=== PATIENT | female | born 1985 | race Caucasian/White ===

== ENCOUNTER 2020-02-04 08:03 | Emergency (ER) | payer OTHER, SELFPAY ==
[2020-02-04 08:08] VITALS: BP 117/84; PULSE 89; RESP 16; TEMP 37; O2SAT 100
--- NOTE | 2020-02-04 08:40 | ED.URI ---
HPI - URI/Sore Throat General Chief Complaint: Upper Respiratory Infection Stated Complaint: vomitting/headache/sinus pressure Time Seen by Provider: 02/04/20 08:20 Source: patient and RN notes reviewed Mode of arrival: ambulatory Limitations: no limitations History of Present Illness HPI Narrative: Patient presents today complaining of frontal headache, nonproductive cough, nasal congestion, chills, subjective fever that has resolved prior to arrival. Denies shortness of breath, rhinorrhea, sore throat. She currently rates her pain 7/10 and has been using a nasal spray and ibuprofen as well as some cough medicine without much relief. Denies history of asthma or COPD. No known COVID-19 exposure. Patient works at [employer]. MD elicited complaint: cough and nasal congestion Related Data Home Medications Medication Instructions Recorded Confirmed No Home Medications 02/04/20 02/04/20 Allergies Allergy/AdvReac Type Severity Reaction Status Date / Time No Known Allergies Allergy Verified 02/04/20 08:35 Review of Systems Review of Systems: Narrative: CONSTITUTIONAL: Denies body aches, sweats. + Fever, chills EYES: Denies visual changes, redness, or discharge. ENT: Denies rhinorrhea, sore throat, or otalgia.+ Congestion CARDIOVASCULAR: Denies chest pain, palpitations, or edema. RESPIRATORY: Denies dyspnea. + Nonproductive cough GASTROINTESTINAL: Denies abdominal pain, nausea, vomiting, or diarrhea. GENITOURINARY: Denies dysuria or hematuria. SKIN: Denies rash, itching, or wounds. MUSCULOSKELETAL: Denies back pain, joint pain, or myalgia. NEUROLOGIC: Denies numbness, tingling, or weakness. + Headache PSYCH: Denies depression or anxiety. PMFSH Comments At time of signature, I have reviewed and agree with nursing past medical, surgical, social and family history unless otherwise noted. Please see nursing chart for further information. There is no relevant family history pertinent to the presenting complaint Exam Narrative: Exam Narrative: GENERAL: Well-appearing, well-nourished, and in no acute distress. HEAD: Normocephalic, atraumatic. EYES: EOMI. No redness or drainage. Conjunctivae normal. ENT: Mucous membranes pink and moist. Nares clear. No rhinorrhea. TMs normal bilaterally. Visualized portion of the throat without edema or erythema. Patient would not tolerate a tongue blade on the tongue. She kept pushing the tongue blade away and pushing my hand away. She would not stick her tongue out all the way. She would not open up fully to fully evaluate her throat. Uvula midline. NECK: Normal AROM. Supple. No lymphadenopathy. CHEST: No respiratory distress. Clear to auscultation. HEART: Regular rate and rhythm. No murmur appreciated. Normal peripheral pulses. EXTREMITIES: Normal range of motion. No edema. SKIN: Warm, dry, no rash. Capillary refill normal. Normal skin turgor. NEURO: No focal deficits. Alert and oriented x3. Gait steady. PSYCH: Normal affect. No signs of depression or anxiety. Course Course Emergency Course: As patient would not cooperate for full throat evaluation, or even putting a tongue blade in her mouth, she would not tolerate a strep swab. We attempted also to obtain a flu swab, but patient kept turning her head away and pushing my hand away as I attempted to even get close to her nose with the swab. I do think that she needs COVID-19 testing, however, I am not sure that she will tolerate it. I will order a test, and she has agreed to this. I explained the test in detail and how the swab was obtained. Vital Signs Vital signs: Vital Signs Temperature 98.6 F 02/04/20 08:08 Pulse Rate 89 02/04/20 08:08 Respiratory Rate 16 02/04/20 08:08 Blood Pressure 117/84 02/04/20 08:08 Pulse Oximetry 100 02/04/20 08:08 Temperature 98.6 F 02/04/20 08:08 Pulse Rate 89 02/04/20 08:08 Respiratory Rate 16 02/04/20 08:08 Blood Pressure 117/84 02/04/20 08:08 Pulse Ox
== END 2020-02-04 08:45 | disposition home or self-care (01) ==
PROVIDERS: Emergency Provider Nurse Practitioner; PCP Nurse Practitioner Family
DX: J06.9 Acute upper respiratory infection, unspecified (principal); Z20.828 Contact with and (suspected) exposure to other viral communicable diseases
CPT/HCPCS: 87635; 99211; C9803; G0463; U0003

== ENCOUNTER 2020-02-04 09:28 | Outpatient (NON) | payer OTHER, SELFPAY ==
[2020-02-04 20:51] LABS: SARS-CoV-2 RNA PCR Negative
== END 2020-02-04 09:29 ==
LOC: ANHCOVIDDT 09:29
PROVIDERS: PCP Nurse Practitioner Family; Visit Provider Nurse Practitioner
DX: J06.9 Acute upper respiratory infection, unspecified (principal); Z20.828 Contact with and (suspected) exposure to other viral communicable diseases
CPT/HCPCS: 87635; C9803; U0003

== ENCOUNTER 2024-05-22 14:53 | Emergency (ER) | payer OTHER, SELFPAY ==
[2024-05-22 15:00] VITALS: BP 110/75; PULSE 85; RESP 22; TEMP 36.9; O2SAT 98
--- NOTE | 2024-05-22 15:09 | ED.GENADULT ---
HPI - General Adult General Chief complaint: Dizziness Stated complaint: Dizziness/Nausea Time Seen by Provider: 05/22/24 15:35 Mode of arrival: ambulatory Limitations: no limitations History of Present Illness HPI narrative: 39-year-old female presents with concern for 3 day history of cough, nausea, dizziness, headache. She also reports body aches. She has not taken any medication for her symptoms. MD complaint: Cough Related Data Allergies Allergy/AdvReac Type Severity Reaction Status Date / Time No Known Allergies Allergy Verified 02/04/20 08:35 Review of Systems Review of Systems: CONSTITUTIONAL: Reports malaise. Denies chills, sweats, or fever. EYES: Denies visual changes, redness, or discharge. ENT: Denies rhinorrhea, congestion. Denies sinus pain, otalgia or sore throat. CARDIOVASCULAR: Denies chest pain, palpitations, or edema. RESPIRATORY: Denies cough or dyspnea. GASTROINTESTINAL: Denies abdominal pain, vomiting, diarrhea, bloody, or mucous stools. Reports nausea GENITOURINARY: Denies dysuria or hematuria. SKIN: Denies rash or itching. MUSCULOSKELETAL: Denies back pain, joint pain, or myalgia. NEUROLOGIC: Reports headache and body aches PSYCHIATRIC: Denies anxiety or depression. All systems reviewed & are unremarkable except as noted in HPI and below PMFSH Comments At time of signature, agree with nursing past medical, surgical, social and family history. There is no relevant family history pertinent to the presenting complaint Exam Narrative: GENERAL: Well-appearing, well-nourished, and in no acute distress. HEAD: Normocephalic EYES: PERRLA, conjunctivae clear ENT: Nares clear, turbinates edematous and erythematous, clear discharge. Mucous membranes moist. TM pearly hartman with dull light reflex bilaterally; no tragal tenderness. Oropharynx erythematous without lesions. Tonsils enlarged and without exudate, no drooling, no hoarseness, no trismus, uvula midline. NECK: Supple. No lymphadenopathy CHEST: Clear to auscultation, breath sounds equal. No wheezing, rhonchi, rales, or stridor. No respiratory distress, speaks in full sentences. HEART: Regular rate and rhythm. No murmur heard. SKIN: Warm, dry, no rash. NEURO: Alert and oriented x3. No focal deficits PSYCH: Normal mood and affect Course Course Emergency Course: Patient is aware of diagnosis, understands and agrees to treatment plan. Anticipatory guidance given. Patient agrees to follow-up as directed and is aware of reasons to seek care at the emergency department. Portions of this record may have been created with voice recognition software Level of Care: Express Care Visit Vital Signs Vital signs: Vital Signs Temperature 98.5 F 05/22/24 15:00 Pulse Rate 85 05/22/24 15:00 Respiratory Rate 22 H 05/22/24 15:00 Blood Pressure 110/75 05/22/24 15:00 Pulse Oximetry 98 05/22/24 15:00 Oxygen Delivery Room Air 05/22/24 15:00 Temperature 98.5 F 05/22/24 15:00 Pulse Rate 85 05/22/24 15:00 Respiratory Rate 22 H 05/22/24 15:00 Blood Pressure 110/75 05/22/24 15:00 Pulse Oximetry 98 05/22/24 15:00 Oxygen Delivery Room Air 05/22/24 15:00 Reviewed. Medical Decision Making MDM Narrative Medical decision making narrative: The patient was evaluated by myself in the emergency department. History is obtained from patient who is an independent historian and physical exam was performed.? Available medical records were reviewed at this time. ? Exam findings and imaging show no acute concerns or changes; patient is non-toxic appearing and is in no distress. Patient is appropriate for outpatient treatment and follow-up. ? I have evaluated and discussed social determinants of health with the patient that could potentially impact subsequent diagnosis and treatment plans. ? Differential diagnosis and treatment plan were discussed with the patient. Patient agrees with discussion and after shared medical decision making agrees with plan of care. All questions were answered to the patient's satisfaction. Vital Signs Vital Signs: Vital Signs Temperature 98.5 F 05/22/24 15:00 Pulse Rate 85 05/22/24 15:00 Respiratory Rate 22 H 05/22/24 15:00 Blood Pressure 110/75 05/22/24 15:00 Pulse Oximetry 98 05/22/24 15:00 Oxygen Delivery Room Air 05/22/24 15:00 Temperature 98.5 F 05/22/24 15:00 Pulse Rate 85 05/22/24 15:00 Respiratory Rate 22 H 05/22/24 15:00 Blood Pressure 110/75 05/22/24 15:00 Pulse Oximetry 98 05/22/24 15:00 Oxygen Delivery Room Air 05/22/24 15:00 Critical Care Time Critical Care Time Critical Care Time: No Discharge Plan Discharge Clinical Impression: Influenza-like illness Patient Disposition: Home, Self-Care Condition: Stable Instructions: Viral Syndrome (ED) Additional Instructions: -Take strict precautions to prevent the spread of your virus. Be diligent about covering your cough (even when you are alone) and washing your hands frequently. -You may contagious until you have been symptom and/or fever free for 24 hours without fever reducing medicine -Alternate Ibuprofen and Tylenol for pain and fever relief (per package directions) -Drink plenty of fluid - drink fluid with electrolytes such as Gatorade or other oral re-hydration solution. Avoid caffeine, which can make dehydration worse. -Get plenty of rest to help your body heal. -Use a cool mist humidifier for chest and nasal congestion. -Eat RAW honey or use cough drops to ease throat discomfort -Do not smoke or expose children to secondhand smoke -Wash your hands frequently. -Please follow-up with your primary care doctor in the next 1-2 days if your symptoms do not improve. -If you have any worsening of symptoms or any other concerns please go to the ED immediately. -Please take medications as prescribed and continue taking your home medications as usual. Patient Language: Bhutanese Prescriptions: New pseudoephedrine HCl [12 Hour Decongestant] 120 mg tablet extended release 120 mg PO Q12H PRN (Reason: nasal congestion) Qty: 20 0RF dextromethorphan-guaifenesin [Mucinex DM] 60-1,200 mg tablet extended release 12 hr 1 tablet PO Q12H Qty: 12 0RF Follow-up/Referrals: Audra,Rosmery Grey APN [Primary Care Provider] -
[2024-05-22 15:23] LABS: EDCOVIDSCREEN Negative (Negative); EDINFLUASCREEN Negative (Negative); EDINFLUBSCREEN Negative (Negative)
--- OUTSIDE RECORDS SUMMARY | 2024-05-22 15:39 | XMS_ITS | Data Portability ---
[facility] [address] [facility] [place] [address] Care Team Providers Care Secret Service Agent Name Role Phone ROSMERY NAVARRETE Primary Care Provider LATRELL LANDEROS Arboriculture Instructor Unavailable Assessment No assessment recorded. Plan of Treatment Reminders Order Date Submit Date Provider Last Modified By Organization Details Last Modified Time Details Appointments ANY 15 2024 08:00A M Rosmery Navarrete APN, [employer] Not available Not available Not available Lab lipid panel, serum 2023 024 [facility], [address] [facility], [facility], [place], [address], 07/04/2023 20:08:41 CMP, serum or plasma 2023 024 [facility], [address] [facility], [facility], [place], [address], 07/04/2023 20:08:42 cytolog y report, thin prep, smear or scrapin g, cervica l or vaginal 2024 025 [facility], [address] [facility], [facility], [place], [address], 05/18/2024 12:39:49 Referral gastroe nterolo gist referra l 2023 024 damir Choi MD, [address] [place] [address] Dr Davies, [address], [place], [address], 05/14/2024 10:56:59 Procedures None recorde d. Surgeries None recorde d. Imaging None recorde d. Medication Orders norethi ndrone (contra ceptive ) 0.35 mg tablet [id number], [address], [place], [address], 05/13/2023 09:08:32 ondanse sheridan 4 mg disinte grating tablet 2023 [place] [address], [place], [address], 07/04/2023 09:35:39 atorvas tatin 40 mg tablet 2023 [facility], [facility] [address], [place], [address], 07/04/2023 09:35:40 cetiriz ine 10 mg tablet 2023 024 [facility], [facility] [address], [place], [address], 07/04/2023 09:35:41 Vitamin D2 1,250 mcg (50,000 unit) capsule 2023 [place] [address], [place], [address], 07/04/2023 09:35:38 omepraz ole 20 mg capsule ,delaye d release 2023 024 [facility], [facility] [address], [place], [address], 07/04/2023 09:35:40 cetiriz ine 10 mg tablet 2023 024 [facility], [facility] [address], [place], [address], 01/05/2024 09:01:09 atorvas tatin 40 mg tablet [address], [place], [address], 01/05/2024 09:01:09 Vitamin D2 1,250 mcg (50,000 unit) capsule [address], [place], [address], 01/05/2024 09:01:12 omepraz ole 20 mg capsule ,delaye d release [address], [place], [address], 01/05/2024 09:01:12 ondanse sheridan 4 mg disinte grating tablet [address], [place], [address], 01/05/2024 09:01:12 Patient TargetsNo targets recorded. Patient Instructions Encounter Date Encounter Id Patient Instructions Last Modified By Organization Details Last Modified Time 04/14/2023 [id number] A healthy lifest yle: care instructions Not available 04/14/2023 15:06:45 tailbone injury: care instructions Not available 04/14/2023 15:06:45 earwax blockage: care instructions Not available 04/14/2023 15:35:12 Increase intake of fresh fruits, and vegetables. Avoid packaged foods and fast foods. Follow a low salt diet, drink at least 8-10 8oz glasses of water a day, exercise most days of the week. Take all medications as prescribed. Keep appointments with PCP and all specialists. Not available 04/14/2023 15:35:17 keep f/u as planned Not availa ble 04/14/2023 15:35:22 07/04/2023 [id number] nausea and vomit ing: care instructions Not available 07/04/2023 09:35:34 When You Want to Lose Weight: Care Instructions Not available 07/04/2023 09:35:34 A healthy lifest yle: care instructions Not available 07/04/2023 09:38:13 gastroesophageal reflux disease (GERD): care instructions Not available 07/04/2023 09:35:34 Increase intake of fresh fruits, and vegetables. Avoid packaged foods and fast foods. Follow a low salt diet, drink at least 8-10 8oz glasses of water a day, exercise most days of the week. Take all medications as prescribed. Keep appointments with PCP and all specialists. Not available 07/04/2023 09:20:05 f/u 6 months DW P barriers to care: none Not available 07/04/2023 09:36:04 01/05/2024 [id number] When You Want to Lose Weight: Care Instructions Not available 01/05/2024 09:00:57 A healthy lifest yle: care instructions Not available 01/05/2024 09:00:57 gastroesophageal reflux disease (GERD): care instructions Not available 01/05/2024 09:00:57 nausea and vomit ing: care instructions Not available 01/05/2024 09:00:57 Avoid eating lat e at night and foods that are spicy or acidic. Decrease fatty foods and increase fresh fruits and vegetables and daily intake of fiber. Drink at least 8-10 glasses of water per day. Increase activity level and work up to at least 30 minutes of exercise most days of the week. 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 Referral for Gastroesophageal reflux disease without esophagitis Referring Physician: Rosmery Navarrete, Family Medicine, Encounter Date: 01/05/2024 Results Created Date Observation Date Name Description Value Unit Range Abnormal Flag Note LastModifiedBy Organization Detail LastModifiedTime 07/04/19 24 07/04/2023 LIPID PANEL cholesterol, total 171 mg/dL 100-19 9 Not Available [facility] [address] [place], [address], 07/04/2023 20:08:41 07/04/19 24 07/04/2023 LIPID PANEL triglyceride s 187 mg/dL 0-149 above high normal Not Available [facility] [address] [place], [address], 07/04/2023 20:08:41 07/04/19 24 07/04/2023 LIPID PANEL HDL cholesterol 54 mg/dL 40-999 Not Available [facility] Department [address] [place], [address], 07/04/2023 20:08:41 07/04/19 24 07/04/2023 LIPID PANEL VLDL cholesterol ryan 37 mg/dL 5-40 Not Available [facility] Department [address] [place], [address], 07/04/2023 20:08:41 07/04/19 24 07/04/2023 LIPID PANEL LDL chol calc (nih) 108 mg/dL 0-99 above high normal Not Available [facility] [address] [place], [address], 07/04/2023 20:08:41 07/04/19 24 07/04/2023 COMP. METAB OLIC PANEL (14) glucose 102 mg/dL 70-99 above high normal Not Available [facility] [address] [place], [address], 07/04/2023 20:08:42 07/04/19 24 07/04/2023 COMP. METAB OLIC PANEL (14) BUN 13 mg/dL 6-20 Not Available [facility] [address] [place], [address], 07/04/2023 20:08:42 07/04/19 24 07/04/2023 COMP. METAB OLIC PANEL (14) creatinine 0.57 mg/dL 0.76-1 .27 below low normal Not Available [facility] [address] [place], [address], 07/04/2023 20:08:42 07/04/19 24 07/04/2023 COMP. METAB OLIC PANEL (14) eGFR 120 >=60 Units for eGFR value s are mL/mi n/1.7 3 The eGFR Calcu latio n has not been valid ated for patie nts under the age of 18. If test resul ts are displ ayed for a patie nt under the age of 18, disre amira that value . Not Available [facility] [address] [place] [address], [address], 07/04/2023 20:08:42 07/04/19 24 07/04/2023 COMP. METAB OLIC PANEL (14) BUN/creatini ne ratio 24 9-23 above high normal Not Available [facility] [address] [place] [address], [address], 07/04/2023 20:08:42 07/04/19 24 07/04/2023 COMP. METAB OLIC PANEL (14) sodium 141 mmol/ L 134-14 4 Not Available [facility] [address] [place] [address], [address], 07/04/2023 20:08:42 07/04/19 24 07/04/2023 COMP. METAB OLIC PANEL (14) potassium 4.2 mmol/ L 3.5-5. 2 Not Available [facility] [address] [place] [address], [address], 07/04/2023 20:08:42 07/04/19 24 07/04/2023 COMP. METAB OLIC PANEL (14) chloride 102 mmol/ L 96-106 Not Available [facility] [address] [place] [address], [address], 07/04/2023 20:08:42 07/04/19 24 07/04/2023 COMP. METAB OLIC PANEL (14) carbon dioxide, total 27 mmol/ L 20-29 Not Available [facility] [address] [place], [address], 07/04/2023 20:08:42 07/04/19 24 07/04/2023 COMP. METAB OLIC PANEL (14) calcium 9.2 mg/dL 8.7-10 .2 Not Available [facility] [address] [place], [address], 07/04/2023 20:08:42 07/04/19 24 07/04/2023 COMP. METAB OLIC PANEL (14) protein, total 7.5 g/dL 6.0-8. 5 Not Available [facility] [address] [place], [address], 07/04/2023 20:08:42 07/04/19 24 07/04/2023 COMP. METAB OLIC PANEL (14) albumin 4.5 g/dL 3.9-4. 9 Not Available [facility] [address] [place], [address], 07/04/2023 20:08:42 07/04/19 24 07/04/2023 COMP. METAB OLIC PANEL (14) globulin, total 3.0 g/dL 1.5-4. 5 Not Available [facility] [address] [place], [address], 07/04/2023 20:08:42 07/04/19 24 07/04/2023 COMP. METAB OLIC PANEL (14) A/G ratio 1.5 1.2-2. 2 Not Available [facility] [address] [place], [address], 07/04/2023 20:08:42 07/04/19 24 07/04/2023 COMP. METAB OLIC PANEL (14) bilirubin, total 0.5 mg/dL 0.0-1. 2 Not Available [facility] [address] [place], [address], 07/04/2023 20:08:42 07/04/19 24 07/04/2023 COMP. METAB OLIC PANEL (14) alkaline phosphatase 104 IU/L 44-121 Not Available [facility] Department [address] [place], [address], 07/04/2023 20:08:42 07/04/19 24 07/04/2023 COMP. METAB OLIC PANEL (14) AST (SGOT) 10 IU/L 0-40 Not Available [facility] Department [address] [place], [address], 07/04/2023 20:08:42 07/04/19 24 07/04/2023 COMP. METAB OLIC PANEL (14) ALT (SGPT) 12 IU/L 0-32 Not Available [facility] Department [address] [place], [address], 07/04/2023 20:08:42 Result Notes None recorded. Problems Name Problem SNOMED Code Status Onset Date Resolution Date Notes Provider Name and Address Organization Details Recorded Time Abdominal pain 89406821 Active 2018 Rosmery Navarrete APN, FNP-C Attn: Christo reyes,[address] [place], [address], [facility] 9 10:41:41 Prehypert ension 287469086 Active 2018 Rosmery Navarrete APN, FNP-C Attn: Christo reyes,[address] [place], [address], [facility] 9 10:41:42 Obese 640873553 Active 2018 Rosmery Navarrete APN, FNP-C Attn: Christo reyes,[address] [place], [address], [facility] 9 10:59:39 Vitamin D deficienc y 17965671 Active 2018 Rosmery Navarrete APN, FNP-C Attn: Christo reyes,[address], [place], [address], [facility] 9 15:46:50 Mixed hyperlipi demia 942546870 Active 2018 Rosmery Navarrete APN, FNP-C Attn: Tiffanybuster g,[address] [facility], [place], [address], [facility] 9 15:47:33 Gastroeso phageal reflux disease without esophagit is 683928775 Active 2018 Rosmery Navarrete APN, FNP-C Attn: Christo g,[address] [facility], [place], [address], [facility] 9 10:35:43 Mood disorder 45849102 Active 2020 Rosmery Navarrete APN, FNP-C Attn: Christo reyes,[address] [facility], [place], [address], [facility] 1 12:40:04 Ingrowing nail of toe of left foot [id number] 11072 Active 2020 Rosmery Navarrete APN, FNP-C Attn: Christo eric,[address] [facility], [place], [address], [facility] 1 12:43:01 Electroni c cigarette user 158198736 Active 2021 Rosmery Navarrete APN, FNP-C Attn: Christo eric,[address] [facility], [place], [address], [facility] 2 11:32:09 Obesity 147830089 Active 2021 Rosmery Navarrete APN, FNP-C Attn: Christo g,[address] [place], [address], [facility] 2 14:58:17 Family history of colorecta l cancer 709293211068 4 Active 2021 LATRELL LANDEROS MD Attn: Christo reyes,[address] [place], [address], [facility] 2 09:23:06 Eruption [id number] Completed 05/11/2018 Rosmery Navarrete APN, FNP-C Attn: Christo reyes,[address] [facility], [place], [address], [facility] 9 10:29:28 Dysuria 44039598 Completed 05/11/2018 Rosmery Navarrete APN [employer] Attn: Christo reyes,[address] [facility], [place], [address], [facility] 9 10:29:25 Nausea and vomiting 93731630 Completed 05/11/2018 Rosmery Navarrete APN [employer] Attn: Christo reyes,[address] [facility], [place], [address], [facility] 9 10:29:30 Problem Notes None recorded. Procedures Surgical History Date Name Laterality Status Provider Name and Address Organization Details Recorded Time 4 Cerumen Removal completed Rosmery Navarrete APN, FNP-C Attn: Accounting,[address] [facility], [place], [address], [facility] 04/14/2023 15:33:46 0 Date of Last Pap Smear completed Franci Kay [facility] 09/25/2020 10:10:06 9 Other completed Marcia Villatoro [facility] 08/12/2014 09:07:13 incision of ingrown nail completed Rachel Montero MA [facility] 06/13/2019 10:26:19 Imaging Results None recorded. Procedure Notes None recorded. Medical Equipment None Reported. Allergies No known drug allergies Medications Name Sig Start Date Stop Date Status Note LastModified by Organization Details LastModified Time amoxicill in 500 mg capsule 05/11 completed Not Available Not Available Not Available atorvasta tin 40 mg tablet Take 1 tablet every day by oral route, for high choleste rol. active Not Available Not Available No t Available prednison e 10 mg tablet 11/01 completed Not Available Not Available Not Available atorvasta tin 20 mg tablet TAKE ONE (1) TABLET EVERY DAY BY ORAL ROUTE. 12/29 completed Not Available Not Available Not Available clindamyc in HCl 300 mg capsule TAKE 1 CAPSULE BY MOUTH EVERY 8 HOURS FOR 10 DAYS FOR DENTAL INFECTIO N 11/01 completed Not Available Not Available Not Available cetirizin e 10 mg tablet Take 1 tablet every day by oral route as needed, for allergie s. active Not Available Not Available No t Available hydrocodo ne 5 mg-acetam inophen 325 mg tablet TAKE 1 TABLET BY MOUTH EVERY 6 HOURS NEEDED FOR MODERATE TO SEVERE PAIN 05/13 completed Not Available Not Available Not Available phenazopy ridine 200 mg tablet 08/19 completed Not Available Not Available Not Available ondansetr on HCl 4 mg tablet TAKE 2 TABLET(S ) TWICE A DAY BY ORAL ROUTE PRN 05/13 completed Not Available Not Available Not Available Pyridium 100 mg tablet Take 1 tablet 3 times a day by oral route as needed for 2 days. 08/19 completed Not Available Not Available Not Available penicilli n V potassium 500 mg tablet Take 1 tablet every 8 hours by oral route for 10 days. 11/01 completed Not Available Not Available Not Available metronida zole 500 mg tablet Take 1 tablet twice a day by oral route. 10/03 completed Not Available Not Available Not Available ciproflox acin 500 mg tablet Take 1 tablet every 12 hours by oral route for 5 days. 09/21 completed Not Available Not Available Not Available sulfameth oxazole 800 mg-trimet hoprim 160 mg tablet Take 1 tablet every 12 hours by oral route. 04/18 completed Not Available Not Available Not Available tramadol 50 mg tablet TAKE 1 TO 2 TABLETS BY MOUTH EVERY 6 HOURS NEEDED FOR MODERATE TO SEVERE PAIN 07/03 completed Not Available Not Available Not Available triamcino lone acetonide 0.1 % topical cream APPLY a THIN LAYER TO THE AFFECTED AREA(S) BY TOPICAL ROUTE TWO (2) TIMES PER DAY active Not Available Not Available No t Available Microgest in FE 04/30 (28) 1 mg-20 mcg (21)/75 mg (7) tablet Take 1 tablet every day by oral route. 04/25 completed 01/01/20 20-pt isn't sure where her BCP is she has been without it for few months. Informed pt to contact pharmacy or Dr. Garcia ofc to rec'd refills. Informed her she may need apt. Not Available Not Available Not Available famotidin e 20 mg tablet Take 1 tablet twice a day by oral route. 03/25 completed Not Available Not Available Not Available meclizine 25 mg tablet Take 1 tablet 3 times a day by oral route as needed, for vertigo. 2024 active Not Available Not Available Not Avai lable benzonata te 100 mg capsule 10/01 completed Not Available Not Available Not Available cephalexi n 500 mg capsule Take 1 capsule every 12 hours by oral route for 7 days. 11/23 completed Not Available Not Available Not Available naproxen sodium 550 mg tablet 06/16 completed Not Available Not Available Not Available ranitidin e 150 mg tablet Take 1 tablet every day by oral route. 02/01 completed Not Available Not Available Not Available Elle-D 12 Hour 60 mg-120 mg tablet,ex tended release Take 1 tablet twice a day by oral route for 6 days. 04/25 completed Not Available Not Available Not Available promethaz ine 25 mg tablet TAKE 1 TABLET EVERY 4-6 HOURS NEEDED FOR NAUSEA 03/25 completed prn Not Available Not Available Not Available omeprazol e 20 mg capsule,d elayed release Take 1 capsule twice a day by oral route, for acid reflux. active Not Available Not Available No t Available ergocalci ferol (vitamin D2) 1,250 mcg (50,000 unit) capsule Take 1 capsule every week by oral route. active Not Available Not Available No t Available ibuprofen 600 mg tablet TAKE 1 TABLET BY MOUTH EVERY 8 HOURS active Not Available Not Available No t Available polyethyl kary glycol 3350 17 gram/dose oral powder Take 17 g every day by oral route as needed. 03/25 completed Not Available Not Available Not Available methylpre dnisolone 4 mg tablets in a dose pack Take 1 dose pk by oral route. 06/12 completed Not Available Not Available Not Available norethind gordo (contrace ptive) 0.35 mg tablet Take 1 tablet every day by oral route. active Not Available Not Available No t Available ketoconaz ole 2 % topical cream APPLY TO THE AFFECTED AREA(S) BY TOPICAL ROUTE ONCE DAILY UNTIL RASH RESOLVES 05/13 completed Not Available Not Available Not Available ondansetr on 4 mg disintegr ating tablet Take 2 tablets every 12 hours by oral route as needed, for nausea. active Not Available Not Available No t Available fluticaso ne propionat e 50 mcg/actua tion nasal spray,thomas pension USE ONE (1) SPRAY IN EACH NOSTRIL DAILY. 2023 active Not Available Not Available Not Avai lable naproxen 500 mg tablet TAKE 1 TABLET BY MOUTH TWICE DAILY NEEDED FOR PAIN active Not Available Not Available No t Available amoxicill in 875 mg-potass ium clavulana te 125 mg tablet Take 1 tablet every 12 hours by oral route for 10 days. 11/12 completed Not Available Not Available Not Available nitrofura ntoin monohydra te/macroc rystals 100 mg capsule Take 1 capsule every 12 hours by oral route for 5 days. 06/15 completed Not Available Not Available Not Available chlorhexi dine gluconate 0.12 % mouthwash Place 15 mL twice a day by mucous membrane route. active Not Available Not Available No t Available cholecalc iferol (vitamin D3) 1,250 mcg (50,000 unit) capsule Take 1 capsule every week by oral route. 10/03 completed Not Available Not Available Not Available ClearLax 06/21 completed Not Available Not Available Not Available 28 mg iron-800 mcg tablet Take 1 tablet every day by oral route. 08/19 completed Not Available Not Available Not Available Estarylla 0.25 mg-35 mcg tablet TAKE ONE TABLET BY MOUTH EVERY DAY 03/25 completed Not Available Not Available Not Available triamcino lone 0.1 %-niacina mide 4 % topical cream active Not Available Not Available Not Available ID NOW COVID-19 Test Kit TEST DIRECTED TODAY 11/25 completed Not Available Not Available Not Available Vitals Date Recorded Body height Body mass index (BMI) Body weight Oxygen saturation Oxygen saturation in Arterial blood by Pulse oximetry Heart rate Respiratory rate Body temperature Systolic blood pressure Diastolic blood pressure Provider Name and Address Organization Details Last Updated DateTime 4 157.48 cm 33.1 kg/m2 17510.5 8 g 98 % 98 % 90 /min 16 /min 98.3 [degF] 108 mm[Hg] 72 mm[Hg] Marilou Day MA [facility] 4 15:02:51 Date Recorded Body height Body mass index (BMI) Body weight Body temperature Oxygen saturation Oxygen saturation in Arterial blood by Pulse oximetry Heart rate Systolic blood pressure Diastolic blood pressure Provider Name and Address Organization Details Last Updated DateTime 4 157.48 cm 33 kg/m2 74674.7 8 g 97.5 [degF] 99 % 99 % 77 /min 116 mm[Hg] 80 mm[Hg] Rachel Montero MA [facility] 4 08:32:58 Date Recorded Body height Body mass index (BMI) Body weight Oxygen saturation Oxygen saturation in Arterial blood by Pulse oximetry Heart rate Respiratory rate Body temperature Systolic blood pressure Diastolic blood pressure Provider Name and Address Organization Details Last Updated DateTime 4 157.48 cm 34.3 kg/m2 02886.5 7 g 98 % 98 % 99 /min 16 /min 98 [degF] 102 mm[Hg] 70 mm[Hg] Smita Herrera MA [facility] 4 09:18:24 Date Recorded Body height Body mass index (BMI) Body weight Oxygen saturation Oxygen saturation in Arterial blood by Pulse oximetry Heart rate Respiratory rate Body temperature Systolic blood pressure Diastolic blood pressure Provider Name and Address Organization Details Last Updated DateTime 4 157.48 cm 35.6 kg/m2 09057.0 7 g 98 % 98 % 103 /min 16 /min 98.2 [degF] 108 mm[Hg] 70 mm[Hg] Lexus Suggs MA [facility] 4 08:45:45 Date Recorded Body height Body mass index (BMI) Body weight Oxygen saturation Oxygen saturation in Arterial blood by Pulse oximetry Heart rate Body temperature Systolic blood pressure Diastolic blood pressure Provider Name and Address Organization Details Last Updated DateTime 5 157.48 cm 34.6 kg/m2 83272.3 6 g 98 % 98 % 86 /min 98.2 [degF] 102 mm[Hg] 69 mm[Hg] Rachel Montero MA [place] [facility] 5 11:02:54 Social History Question Answer Notes LastModified by Organizat ion Details LastModified Time Tobacco Smoking Status Never Smoker Marcia Leivafortyi [place] - [facility] 08/12/2014 09:07:13 Do You Have An Advance Directive? No Information not available 05/11/2018 What Is Your Level Of Alcohol Consumption? None [email or web address] Information not available 03/25/2022 Are You Blind Or Do You Have Difficulty Seeing? No [email or web address] Information not available 08/19/2020 Is Blood Transfusion Acceptable In An Emergency? Yes Information not available 06/13/2019 What Is Your Level Of Caffeine Consumption? Moderate Tea [email or web address] Information not available 03/25/2022 How Much Tobacco Do You Chew? None Information not available 05/11/2018 In The 14 Days Before Symptom Onset, Have You Had Close Contact With A Laboratory-confi rmed COVID-19 While That Case Was Ill? No Information not available 10/09/2019 In The 14 Days Before Symptom Onset, Have You Had Close Contact With A Person Who Is Under Investigation For COVID-19 While That Person Was Ill? No Information not available 10/09/2019 Have You Been To An Area Known To Be High Risk For COVID-19? No Information not available 10/09/2019 Are You Currently Employed? Yes Information not available 06/13/2019 Are You Deaf Or Do You Have Serious Difficulty Hearing? Yes [email or web address] Information not available 04/14/2023 What Type Of Diet Are You Following? REGULAR Information not available 05/11/2018 Which Illicit Or Recreational Drugs Have You Used? None Information not available 05/11/2018 Do You Or Have You Ever Used E-cigarettes Or Vape? Current User Of Electronic Cigarettes 6% Nicotine Information not available 09/21/2021 Education 12 Information no t available 05/11/2018 What Is The Highest Grade Or Level Of School You Have Completed Or The Highest Degree You Have Received? [id number] [email or web address] Information not available 09/25/2020 What Is Your Occupation? [employer] Information not available 05/11/2018 Have There Been Any Changes To Your Family Or Social Situation? No [email or web address] Information not available 09/25/2020 Are There Any Guns Present In Your Home? No Information not available 05/11/2018 Hard Of Hearing Or Deaf In One Or Both Ears? No Information not available 02/14/2020 Legally Blind In One Or Both Eyes? No Information not available 02/14/2020 Live Alone Or With Others? With Others Information not available 06/13/2019 Marital Status Single Informatio n not available 08/12/2014 What Was The Date Of Your Most Recent Tobacco Screening? 05/15/2024 Information not available 05/15/2024 How Many Children Do You Have? 0 Information not available 06/13/2019 Performs Monthly Self-breast Exam? No [email or web address] Information not available 05/30/2018 Do You Use Protection During Sex? Always Information not available 06/13/2019 What Is Your Relationship Status? Single Information not available 06/13/2019 Do You Use Your Seat Belt Or Car Seat Routinely? Yes [email or web address] Information not available 08/19/2020 Seat Belts Used Routinely Yes Information not available 05/11/2018 Are You Sexually Active? Yes Information not available 06/13/2019 Smoke Alarm In Home Yes Information not available 05/11/2018 Do You Have Smoke And Carbon Monoxide Detectors In Your Home? Yes Information not available 09/21/2021 Are You Passively Exposed To Smoke? No [email or web address] Information not available 08/19/2020 Do You Or Have You Ever Used Smokeless Tobacco? Never Used Smokeless Tobacco Information not available 11/23/2018 How Much Tobacco Do You Smoke? No Information not available 05/11/2018 General Stress Level Low Low - Mod Information not available 10/09/2019 Do You Feel Stressed (tense, Restless, Nervous, Or Anxious, Or Unable To Sleep At Night)? [id number] [email or web address] Information not available 12/27/2022 Do You Use Any Illicit Or Recreational Drugs? No [email or web address] Information not available 08/19/2020 Do You Use Sunscreen Routinely? No Information not available 05/11/2018 Has Tobacco Cessation Counseling Been Provided? Yes [email or web address] Information not available 11/25/2021 On What Date Was Tobacco Cessation Counseling Provided? 05/15/2024 Information not available 05/15/2024 How Many Years Have You Smoked Tobacco? 0 Information not available 05/11/2018 Do You Or Have You Ever Used Any Other Forms Of Tobacco Or Nicotine? No [email or web address] Information not available 08/19/2020 Sex: Female Functional Status Question Answer Note LastModified by Organizat ion Details LastModified Time Are you able to care for yourself? Yes Information not available 08/19/2020 What is your exercise level? None walks dogs Information not available 10/09/2019 Mental Status None recorded. Family History Relationship Description Onset Age of this Age Resolved Age Notes LastModified by Organization Details LastModified Time Mother Malignant tumor of colon [email or web address] Not available 2014 09:29:12 Mother Diabetes mellitus [email or web address] Not available 2014 09:29:12 Father Depressive disorder [email or web address] Not available 2014 09:29:12 Sister Asthma Not available 03/25/2015 09:29:12 Maternal Aunt Cerebrovascu lar accident 67 [email or web address] Not available 0 05/30/2018 11:10:32 Maternal Grandmother Malignant neoplastic disease [email or web address] Not available 05/12 11:11:07 Paternal Aunt Malignant tumor of lung [email or web address] Not available 05/12 11:11:37 Medical History Condition Response Coronary Artery Disease N Other N Atrial Fibrillation N High Blood Pressure N Breast Cancer N Lung Disease N Depression N COPD N Blood Clots N Breast Problem N Anesthesia Complications N Headaches/Migraines Y Anxiety Disorder N Muscle, Joint, or Bone Problems N Infertility N Polyps N Acid Reflux (GERD) Y Cancer N Stroke N ADHD N Endometriosis N High Cholesterol N Liver Disease N Schizophrenia N Headaches N Thyroid Problems N Kidney or Bladder Problems N GI Problems Y Acne Y Eating Disorder N Skin Problems N Anemia N Heart Attack (TN) N Diabetes N Ovarian Cancer N Blood Transfusions N Seizures/Epilepsy N Abuse/Domestic Violence N Asthma N Allergies N Substance Abuse N Hepatitis N Heart Disease N Pre-Eclampsia N Heart Failure N Osteoporosis N Gynecological History Statement/Question Response Abnormal Pap Y Flow Moderate Date of LMP 05/04/2024 STIs/STDs N HPV Vaccine N Duration of Flow (days) 4 Most Recent Mammogram Age at Menarche Current Control Method BCPs Frequency of Cycle (Q days) 29 Sexually Active? Y Menses Monthly Y Date of Last Pap Smear 06/13/2019 Sexual Problems? N LMP Definite Desired Control Method BCPs Obstetrics History GPAL:G 0 P 0 0 0 0 Type Value Multiple Births 0 Full Term 0 Induced 0 Spontaneous 0 Premature 0 Living 0 Ectopics 0 Total 0 Immunizations Vaccine Type Date Status Note Provider Name and Address Organization Details Recorded Time COVID-19, mRNA, LNP-S, PF, 30 mcg/0.3 mL dose 06/25/19 21 [facility] null, [place] [facility] 09/01/2020 12:24:37 COVID-19, mRNA, LNP-S, PF, 30 mcg/0.3 mL dose 07/20/19 21 completed [facility] Magaly, SALESPERSON JEWELRY null, [place] - [facility] 09/01/2020 12:25:41 COVID-19, mRNA, LNP-S, PF, 30 mcg/0.3 mL dose 02/11/20 21 completed Rosmery Navarrete APN, [employer]C Attn: Accounting,[address] [place], [address], [place] [facility] 12/08/2021 10:58:22 COVID-19, mRNA, LNP-S, bivalent, PF, 30 mcg/0.3 mL dose 03/05/20 22 completed Rosmery Navarrete APN, [employer]C Attn: Accounting[address] [place], [address], [place] [facility] 03/25/2022 10:49:49 Influenza, split virus, quadrivalent, preservative 06/17/19 17 completed Not Available [facility] 04/28/2019 02:49:53 Influenza, split virus, trivalent, PF 02/04/20 24 completed LATRELL LANDEROS MD Attn: Accounting,[address] [facility], [place], [address], [facility] - [facility] 05/15/2024 11:07:15 Influenza, split virus, quadrivalent, preservative 02/02/20 19 completed LATRELL LANDEROS MD Attn: Accounting,[address] [facility], [place], [address], [facility] - [facility] 05/15/2024 11:28:31 Influenza, split virus, quadrivalent, PF 01/06/20 18 completed Not Available [facility] 04/28/2019 02:36:23 Influenza, split virus, quadrivalent, preservative 02/02/20 19 cancelled patient objection Not Available [facility] 04/28/2019 02:38:42 Influenza, split virus, quadrivalent, preservative 02/19/20 21 completed Rosmery Navarrete APN, [employer] Attn: Accounting,[address] [facility], [place], [address], [facility] 02/18/2021 13:08:10 Influenza, split virus, quadrivalent, PF 12/24/19 22 completed Franci conde, [place] - [facility] 12/23/2021 11:27:45 Past Encounters Encounter ID Performer Location Encounter Start Date Encounter Closed Date Diagnosis/Indication Diagnosis SNOMED-CT Code Diagnosis ICD10 Code Diagnosis Note [id number] Blayne Machado [facility] [address] [place] [address] 1 08/12/2014 08:51:27 08/12/2014 10:13:52 [facility] [id number] AUGUSTO Cash [facility] [address] [place] [address] 1 09/25/2014 10:15:11 09/25/2014 11:17:22 Dysuria [id number] Blayne Machado [facility] [address] [place] [address] 1 03/25/2015 09:20:11 03/25/2015 10:50:55 Nausea and vomiting 90159576 R11.2 [id number] Blayne King [facility] [address] [place] [address] 1 02/03/2016 08:21:37 02/04/2016 11:30:59 Abscess 908072918 L02.91 [id number] Blayne Machado [facility] [address] [place] [address] 1 06/16/2016 09:48:06 06/16/2016 13:31:11 Adult health examination 345399542 Z00.00 Administra tion of influenza vaccine 71026444 Z23 [id number] Blayne Machado [facility] [address] [place] [address] 1 10/05/2016 09:34:58 10/05/2016 12:05:52 Adult health examination 650839874 Z00.00 Family his tory of coronary arteriosclerosis 308903196 Z82.49 [id number] YaniJesika Machado [place] [address] [place] [address] 1 02/22/2017 14:43:49 02/22/2017 17:05:19 Upper respiratory infection 28094218 J06.9 [id number] Blayne Machado [place] [address] [place] [address] 1 06/21/2017 11:17:42 06/22/2017 12:39:55 Open wound of foot 253614441 S91.302A [id number] Blayne Mello 14 IM [address] [facility] [place] [address] 12/08/2017 10:48:39 12/08/2017 14:31:54 Eruption 429702402 R21 [id number] Blayne Mello 14 IM [address] [facility] [place] [address] 01/05/2018 08:22:18 01/06/2018 09:48:02 Eruption 995155941 R21 Administra tion of influenza vaccine 95474152 Z23 [id number] Blayne Mello 14 IM [address] [facility] [place] [address] 03/23/2018 14:36:45 03/23/2018 16:11:52 Viral syndrome 255310223 B34.9 [id number] Blayne Mello 14 IM [address] [facility] [place] [address] 04/18/2018 10:46:46 04/18/2018 13:41:26 Streptococcal sore throat 20421600 J02.0 [id number] MD Esme Arroyo (Adult Med) [address] [place] [address] 05/11/2018 09:45:20 05/11/2018 13:08:54 Adult health examination 465493994 Z00.01 Encouraged routine MAINTENANCE CUSTODIAN, vision, dental exams, well balanced diet. Prehypertension 64682222 9 R03.0 BP in pre-hypert ensive range, dwp risk, reducing salt and increasing exercise Abdominal pain 63235710 R10.9 vomiting and pain with eating, nausea, ongoing x 2 months; pain to epigastric area with deep palpation, no rebound pain, exam otherwise negativeWi ll start with labs; urine dip wnl, preg neg as well. may cont zofran prn, dwp possible imaging pending labs Obese 386752034 E66.9 advised low fat, low cholestero l, low carb diet, regular exercise and weight reduction. [id number] Stefania Victoria (DOCTOR OF PHARMACY) [address] [place] [address] 05/30/2018 10:28:50 05/30/2018 11:39:50 Gynecologic examination 05388224 Z01.411 First pap today Venereal d isease screening 971104706 Z11.3 RTO one week for results. Obesity 448219529 E66.9 Nutrition and exercise discussed. Oral contr aceptive prescribed 404536141 Z30.011 Pt. does not want to get . She is not using any control. control options discussed. Pt. wants pills. Rx sent to pharmacy. Instructio ns discussed. [id number] Rosmery Navarrete APN, [employer] Esme (Adult Med) [address] [facility] [place] [address] 06/01/2018 10:13:32 06/02/2018 09:26:07 Abdominal pain 82171419 R10.9 vomiting still on/off; worse with zofran; imaging wnl; dwp to stop zofran, pain was r/t ovarian cyst Obese 301853626 E66.9 advised low fat, low cholestero l, low carb diet, regular exercise and weight reduction. [id number] Stefania DASH (DOCTOR OF PHARMACY) [address] [place] [address] 06/06/2018 10:50:09 06/07/2018 09:09:30 HPV - Human papillomavirus test positive 811215878 R87.619 Pap was cytology negative. however, her hr-HPV was positive. Type 16 and 18 were negative. Will repeat co-testing in one year, dwp. Bacterial vaginosis 4197 12705 N76.0 Diagnosis d/w pt. Rx sent to pharmacy. Lavell godoy. [id number] Rosmery Navarrete APN, FNP-C [place] (Adult Med) [address] [place] [address] 10/03/2018 09:01:26 10/04/2018 12:58:29 Dysuria 43867597 R30.0 urine dip pos blood, will send for culture and notify pt if abx change needed, will start macrobid; dwp to increase fluids and RTO if increase in pain or fever or other changes occur. [id number] Rosmery Navarrete APN, FNP-C [place] (Adult Med) [address] [place] [address] 11/23/2018 11:38:45 11/24/2018 09:30:38 Nausea and vomiting 74506341 R11.2 zofran prn Viral gastroenteritis 11 2482940 A08.4 keep hydrated, clear liquid diet and advance to brat diet as tolerated [id number] Rosmery Navarrete APN, FNP-C [place] (Adult Med) [address] [place] [address] 12/21/2018 10:07:27 12/22/2018 09:46:25 Gastroesophageal reflux disease without esophagitis 740426282 K21.9 gerd symptoms increasing , has been using antacid more often; will start ranitidine 150 mgdwp r/b/seprov ided handout for gerd/dwp diet changes [id number] Rosmery Navarrete APN, FNP-C [place] (Adult Med) [address] [place] [address] 02/01/2019 08:49:34 02/02/2019 12:08:36 Gastroesophageal reflux disease without esophagitis 972907666 K21.9 gerd symptoms increasing , has been using antacid more often; will start ranitidine 150 mg- change to famotidine dwp r/b/seprov ided handout for gerd/dwp diet changes Influenza vaccination declined 632992168 Z28.21 refused Viral gastroenteritis 11 9117354 A08.4 keep hydrated, clear liquid diet and advance to brat diet as toleratedz ofran prn, refill requested Upper resp iratory infection 88870237 J06.9 dwp to increase fluids, OTC cold med prn, rest, good handwashin g [id number] Rosmery Navarrete APN, JENIFER Victoria (Adult Med) [address] [place] [address] 05/15/2019 15:39:24 05/16/2019 08:14:04 Dysfunction of eustachian tube 03501986 H68.013 bilateral TM's with middle ear fluid, cont flonase, start medrol dose pack Benign par oxysmal positional vertigo 362757792 H81.13 dwp cnt medication s, call if not improving [id number] Stefania Garcia Esme (DOCTOR OF PHARMACY) [address] [facility] [place] [address] 06/13/2019 10:04:00 06/14/2019 08:56:29 Gynecologic examination 54120193 Z01.411 Last pap done 05/30/18 was negative with positive hr-HPV. Type 16 & 18 were negative. Pap done. Surveillan ce of oral contraception 967128340 Z30.41 Pt. likes BCPs. She is sexually active. She declines STD testing. [id number] Rosmery Navarrete APN, JENIFER [place] (Adult Med) [address] [facility] [place] [address] 06/14/2019 11:41:40 06/18/2019 08:07:51 Gastroesophageal reflux disease without esophagitis 193388230 K21.9 gerd symptoms increasing , has been using antacid more often; will start ranitidine 150 mg- change to famotidine dwp r/b/seprov ided handout for gerd/dwp diet changes Viral gastroenteritis 11 8136926 A08.4 keep hydrated, clear liquid diet and advance to brat diet as toleratedz ofran prn Upper resp iratory infection 18317296 J06.9 dwp to increase fluids, OTC cold med prn, rest, good handwashin g [id number] Rosmery Navarrete APN, FNP-C [place] (Adult Med) [address] [place] [address] 10/09/2019 07:59:43 10/10/2019 13:54:39 Gastroesophageal reflux disease without esophagitis 915991977 K21.9 gerd symptoms increasing , has been using antacid more often; will start ranitidine 150 mg- change to famotidine dwp r/b/seprov ided handout for gerd/dwp diet changes Mixed hyperlipidemia 267 939282 E78.2 Cut back on the fatty foods, add fish oil or omega three fatty acids; red yeast rice may also help. Eat more fresh fruits and veggies and lean meats. Drink more water! Obese 541305284 E66.9 advised low fat, low cholestero l, low carb diet, regular exercise and weight reduction. Vitamin D deficiency 347 95453 E55.9 low, cont replacemen t Dysfunctio n of eustachian tube 73105243 H68.013 cont flonase prn [id number] Rosmery Navarrete APN, FNP-C [place] (Adult Med) [address] [place] [address] 01/01/2020 08:19:03 01/03/2020 16:27:50 Abnormality of nail of toe 890882795 L60.8 dwp bruising, possible that she dropped something on it; toe no edema, no damage ordiscolor ation to nail bed, dwp wearing protective foot wear; monitor [id number] Rosmery Navarrete APN, FNP-C [place] (Adult Med) [address] [facility] [place] [address] 02/14/2020 11:04:38 02/15/2020 07:59:50 Dysuria 02488615 R30.0 hx of uti; will start macrobid; dwp to increase fluids and RTO if increase in pain or fever or other changes occur. [id number] YUNG Tipton-MARIVEL padilla [address] [place] [address] 04/18/2020 10:33:11 04/21/2020 10:46:31 Viral screening 209148330 Z11.52 Viral syndrome 908475396 B34.9 [id number] Rosmery Navarrete APN, FNP-C [place] (Adult Med) [address] [place] [address] 04/25/2020 09:08:08 04/29/2020 07:30:20 Upper respiratory infection 58721279 J06.9 dwp to increase fluids, OTC cold med prn, rest, good handwashin g [id number] Rosmery Navarrete APN, FNP-C [place] (Adult Med) [address] [facility] [place] [address] 08/19/2020 08:11:33 08/20/2020 12:03:36 Viral gastroenteritis 575860235 A08.4 keep hydrated, clear liquid diet and advance to brat diet as tolerated [id number] Rosmery Navarrete APN, FNP-C [place] (Adult Med) [address] [place] [address] 08/25/2020 08:54:06 08/26/2020 11:32:16 Viral gastroenteritis 938331764 A08.4 keep hydrated, clear liquid diet and advance to brat diet as tolerated Pain in throat 804730022 R07.0 dwp to get covid tested/may need to got urgent care for strep test treat symptoms with otc meds; increase fluids [id number] Suzette padilla [address] [place] [address] 08/26/2020 10:15:40 08/27/2020 18:42:05 Viral screening 254652688 Z11.52 D/w pt the current pandemic of COVID-19 and call for social isolation in order to blunt the curve and minimize risk and spread. Encouraged patient and family to take restrictio ns seriously. They have verbalized understand ing of such. Viral syndrome 414872585 B34.9 [id number] Stefania Victoria (DOCTOR OF PHARMACY) [address] [facility] [place] [address] 09/25/2020 09:44:51 09/25/2020 21:57:50 Gynecologic examination 40703890 Z01.411 Last pap done 06/13/19 was negative with negative hr-HPV. Therefore, no pap needed. Surveillan ce of oral contraception 787796402 Z30.41 Pt. likes current OCP. She is sexually active. She declines STD testing. Refill sent. Obesity 846069031 E66.9 Nutrition and exercise discussed. [id number] Rosmery Navarrete APN, FNP-C [place] (Adult Med) [address] [place] [address] 10/01/2020 12:02:18 10/03/2020 05:50:51 Gastroesophageal reflux disease without esophagitis 384205436 K21.9 gerd symptoms increasing , has been using antacid more often; will start ranitidine 150 mg- change to famotidine dwp r/b/seprov ided handout for gerd/dwp diet changeshas increased vomiting and pain intermitte ntly Ingrowing nail of toe of left foot [id number] 0685574 L60.0 left nail ingrowndwp will refer to podiatry Mood disorder 87139639 F 40 pt reports having increased depression lillie with missing her mom, pt open to counseling [id number] Rosmery Navarrete APN, FNP-C [place] (Adult Med) [address] [place] [address] 01/07/2021 11:53:17 01/09/2021 12:55:58 Intolerant of cold 26858873 R68.89 dwp will start with labs Cholesterol screening 27 8238609 Z13.754 [id number] Rosmery Navarrete APN, FNP-C [place] (Adult Med) [address] [facility] [place] [address] 02/18/2021 12:24:05 02/19/2021 14:29:35 Administration of influenza vaccine 92396156 Z23 Dysuria 85710395 R30.0 hx of uti;pos for leukocytes will start macrobid; dwp to increase fluids and RTO if increase in pain or fever or other changes occur. Obese 475249375 E66.9 advised low fat, low cholestero l, low carb diet, regular exercise and weight reduction. [id number] Rosmery Navarrete APN, FNP-C [place] (Adult Med) [address] [place] [address] 06/15/2021 11:38:39 06/16/2021 06:47:17 Gastroesophageal reflux disease without esophagitis 352132081 K21.9 gerd symptoms improved on famotidine dwp r/b/seprov ided handout for gerd/dwp diet changeshas increased vomiting and pain intermitte ntly, pt declined referral to GI Mixed hyperlipidemia 267 805400 E78.2 dwp diet changes will check labs next visit Obese 488390393 E66.9 advised low fat, low cholestero l, low carb diet, regular exercise and weight reduction. Prehypertension 84896701 9 R03.0 BP in pre-hypert ensive range, dwp risk, reducing salt and increasing exercise Vitamin D deficiency 347 49261 E55.9 low, cont replacemen t Endocrine/ metabolic screening 607442794 Z13.418 [id number] Rosmery Navarrete APN, FNP-C [place] (Adult Med) [address] [place] [address] 06/02/2021 12:32:01 06/03/2021 08:06:35 Dysuria 66299953 R30.0 hx of uti;pos for leukocytes will start macrobid; dwp to increase fluids and RTO if increase in pain or fever or other changes occur. Acute urin emma tract infection 879155405 N39.0 urine c/s pos, change abx to cephalospo rin [id number] Rosmery Navarrete APN, FNP-C [facility] (Adult Med) [address] [place] [address] 09/21/2021 11:06:41 09/22/2021 11:39:10 Gastroesophageal reflux disease without esophagitis 760127880 K21.9 gerd symptoms improved on famotidine dwp r/b/seprov ided handout for gerd/dwp diet changeshas increased vomiting and pain intermitte ntly, pt declined referral to GI Mixed hyperlipidemia 267 248932 E78.2 dwp diet changes will check labs next visit Obese 931847810 E66.9 advised low fat, low cholestero l, low carb diet, regular exercise and weight reduction. Vitamin D deficiency 347 42042 E55.9 low, cont replacemen t Electronic cigarette user 945075881 Z72.89 Smoking cessation encouraged . [id number] Rosmery Navarrete APN, FNP-C [place] (Adult Med) [address] [place] [address] 11/25/2021 14:45:54 11/26/2021 10:21:27 Post-acute COVID-19 8658833393 U09.9 dx on 11/01/21, no longer has symptoms Obesity 647552524 E66.9 advised low fat, low cholestero l diet, regular exercise and weight reduction. [id number] Rosmery Navarrete APN, FNP-C [place] (Adult Med) [address] [place] [address] 12/23/2021 10:47:25 12/23/2021 13:02:07 Gastroesophageal reflux disease without esophagitis 853635952 K21.9 gerd symptoms improved on famotidine dwp r/b/seprov ided handout for gerd/dwp diet changeshas increased vomiting and pain intermitte ntly, pt declined referral to GI Mixed hyperlipidemia 267 429680 E78.2 dwp diet changes, still elevated, advised omega three Obese 180311657 E66.9 advised low fat, low cholestero l, low carb diet, regular exercise and weight reduction. Vitamin D deficiency 347 80801 E55.9 low, cont replacemen t Electronic cigarette user 649387115 Z72.89 Smoking cessation encouraged . Administra tion of influenza vaccine 99475610 Z23 [id number] Rosmery Navarrete APN, FNP-C [place] (Adult Med) [address] [place] [address] 03/25/2022 10:21:24 03/29/2022 13:48:46 Gastroesophageal reflux disease without esophagitis 752902584 K21.9 gerd symptoms improved on famotidine dwp r/b/seprov ided handout for gerd/dwp diet changeshas increased vomiting and pain intermitte ntly, pt declined referral to GI Mixed hyperlipidemia 267 435000 E78.2 dwp diet changes, still elevated, advised omega threerepea t lab, if still high, will start statin Vitamin D deficiency 347 38912 E55.9 check lab Electronic cigarette user 980689228 Z72.89 Smoking cessation encouraged . Obesity 203450055 E66.9 advised low fat, low cholestero l diet, regular exercise and weight reduction. [id number] MD Esme SPARROW (DOCTOR OF PHARMACY) [address] [place] [address] 04/09/2022 08:40:01 04/13/2022 09:36:08 Contraception care management 335133367 Z30.9 - Discussed various contracept ion methods available, risks/bene fits, and patient preference s- Patient good candidate for LARCs; patient to return to clinic as needed for placement if she decides to pursue this route in the future- Prescribed progestin- only pills today due to history of migraine with aura that makes estrogen-c ontaining contracept ion contraindi cated- Continue barrier methods to prevent from STIs Family his tory of colorectal cancer 0792290100 104 Z80.0 - Mom with history of CRC but unsure age of diagnosis- Recommende d patient find out how old her mom was when she was diagnosed, as the patient may need earlier CRC screening than 46 years old [id number] Rosmery Navarrete APN, [employer]-C [facility] (Adult Med) [address] [place] [address] 06/24/2022 10:14:49 06/29/2022 14:26:34 Gastroesophageal reflux disease without esophagitis [id number] K21.9 gerd symptoms improved on famotidine dwp r/b/seprov ided handout for gerd/dwp diet changeshas increased vomiting and pain intermitte ntly, pt declined referral to GI Mixed hyperlipidemia 267 733873 E78.2 dwp diet changes, still elevated, advised omega threerepea t lab, cont statin Vitamin D deficiency 347 30602 E55.9 cont replacemen t Electronic cigarette user 263424256 Z72.89 Smoking cessation encouraged . Obesity 901477624 E66.9 advised low fat, low cholestero l diet, regular exercise and weight reduction. Infection of tooth 37941 9373 K04.7 lower molar infectionl ist of dental providers given [id number] MD Esme SPARROW (DOCTOR OF PHARMACY) [address] [place] [address] 08/20/2022 10:05:20 08/26/2022 09:44:21 Infection of tooth [id number] K04.7 - Appears to have pulpitis of tooth #32 (right 3rd molar)- Provided patient with list of dentists that she can call to see if they take the medical card- Discussed a safe OTC pain medication regimen along with twice daily chlorhexid ine washes- Prescribed 7-day course of Augmentin Body mass index 30+ - obesity 862662144 Z68.31 - Recommende d cutting out sugar-swee tened beverages in setting of dental infection [id number] Rosmery Navarrete APN, FNP-C [place] (Adult Med) [address] [place] [address] 11/01/2022 14:42:30 11/03/2022 11:12:11 Dental abscess [id number] K04.7 will cover with another round of abx; Obesity 074338077 E66.9 advised low fat, low cholestero l diet, regular exercise and weight reduction. Allergic reaction 626559 005 T78.40XA recent reaction, will give anthistami ne [id number] [facility] [address] [place] [address] 11/12/2022 14:07:36 11/29/2022 15:45:08 Body mass index 30+ - obesity 745643186 Z68.31 - Recommende d cutting out sugar-swee tened beverages in setting of dental infection Tinea corporis 44515497 B35.4 - Exam consistent with tinea of the left breast- Will treat with topical ketoconazo le 2% daily until rash resolves. Advised about covering area, washing hands after applying cream, etc. to prevent further spread [id number] Rosmery Navarrete APN, FNP-C [place] (Adult Med) [address] [place] [address] 12/27/2022 08:14:57 12/28/2022 13:56:41 Gastroesophageal reflux disease without esophagitis 137144334 K21.9 gerd symptoms improved on famotidine dwp r/b/seprov ided handout for gerd/dwp diet changeshas increased vomiting and pain intermitte ntly, pt declined referral to GI Obesity 011882156 E66.9 advised low fat, low cholestero l diet, regular exercise and weight reduction. Adult heal th examination 136279377 Z00.01 Encouraged routine MAINTENANCE CUSTODIAN, vision, dental exams, well balanced diet. Vitamin D deficiency 347 04997 E55.9 cont replacemen t Vomiting 268927707 R11.1 0 dwp checking labs, denies possible [id number] Rosmery Navarrete APN, [employer] [facility] (Adult Med) [address] [place] [address] 04/14/2023 14:45:06 04/15/2023 11:55:06 Fracture of coccyx 131110735 S32.2XXD pain improving, cont with pillow seat and rest Obesity 317344086 E66.9 advised low fat, low cholestero l diet, regular exercise and weight reduction. Impacted c erumen of bilateral ears 1364788320 534460 H61.23 harjinder TM clogged, cleared with lavage [id number] MD Esme SPARROW (DOCTOR OF PHARMACY) [address] [place] [address] 05/13/2023 08:25:14 05/16/2023 12:18:34 Routine gynecologic examination done [id number] 9101 Z01.419 - Reviewed risks for infection and cancer; ordered screening tests as appropriat e- Recommende d annual flu vaccine and updated 2022 COVID vaccine- Due for co-testing at next visit Contracept ion care management 073655335 Z30.9 - Discussed various contracept ion methods available, risks/bene fits, and patient preference s- Patient good candidate for LARCs; patient to return to clinic as needed for placement if she decides to pursue this route in the future- Prescribed progestin- only pills due to history of migraine with aura that makes estrogen-c ontaining contracept ion contraindi cated- Continue barrier methods to prevent from STIs Irregular periods 323653 07 N92.6 - Reassured patient that a small number of people on control pills stop having periods- Advised to continue taking norethindr one pills daily at the same time every day- Continue condom use for further contracept michele protection - If any concern for missed pills, can take test as needed [id number] Rosmery Navarrete APN, JENIFER [place] (Adult Med) [address] [place] [address] 07/04/2023 09:07:24 07/06/2023 14:05:58 Gastroesophageal reflux disease without esophagitis 920680445 K21.9 gerd symptoms improved on famotidine dwp r/b/seprov ided handout for gerd/dwp diet changeshas increased vomiting and pain intermitte ntly, pt declined referral to GI Obesity 465637137 E66.9 advised low fat, low cholestero l diet, regular exercise and weight reduction. Vitamin D deficiency 347 32077 E55.9 cont replacemen t Vomiting 905755546 R11.1 0 dwp checking labs, denies possible Viral gastroenteritis 11 9085442 A08.4 keep hydrated, clear liquid diet and advance to brat diet as tolerated Mixed hyperlipidemia 267 220831 E78.2 dwp diet changes, still elevated, advised omega threecont statin Allergic reaction 946720 005 T78.40XA recent reaction, will give anthistami ne [id number] Rosmery Navarrete APN, JENIFER [place] (Adult Med) [address] [place] [address] 01/05/2024 08:26:57 01/10/2024 09:37:35 Gastroesophageal reflux disease without esophagitis 516510640 K21.9 gerd symptoms improved on famotidine dwp r/b/seprov ided handout for gerd/dwp diet changeshas increased vomiting and pain intermitte ntly, pt agreeable to referral to GI Obesity 503711307 E66.9 advised low fat, low cholestero l diet, regular exercise and weight reduction. Vitamin D deficiency 347 14934 E55.9 cont replacemen t Vomiting 596137113 R11.1 0 denies possible Mixed hyperlipidemia 267 521182 E78.2 dwp diet changes, still elevated, advised omega threecont statin Allergic reaction 530884 005 T78.40XA recent reaction, will give anthistami ne [id number] MD Karen [facility] (DOCTOR OF PHARMACY) [address] [place] [address] 05/15/2024 10:51:10 05/18/2024 11:59:47 Routine gynecologic examination done 3497021982 9101 Z01.419 - Reviewed risks for infection and cancer; ordered screening tests as appropriat e- Patient to follow up with PCP for routine cardiovasc ular disease screening Screening for malignant neoplasm of cervix 656421414 Z12.4 - Due for co-testing ; collected today Positive s creening for depression on PHQ-9 (Patient Health Questionnaire 9) 4756956995 72934 Z13.31 - PHQ-9 positive with mood disorder diagnosis noted in chart, not currently on meds. Needs PCP follow up. Health Concerns Section Related Observation LastModified by Organization Detai ls LastModified Time None Recorded Concern Status LastModified by Organization Details LastModified Time None Recorded Advance Directives Directive N: Payers Encounter Date Sequence Insurance Name Policy Number Policy Mcknight Covered Member ID Mcknight Member ID Guarantor Name 04/14/2023 1 [place] [employer] [place] [employer] Chelsymichael Grossman [id number] Chelsy Grossman 05/13/2023 1 [facility] - DOS ON OR AFTER 20 (MEDICAID REPLACEMENT - HMO) Chelsymichael Grossman [id number] Chelsymichael Grossman 07/04/2023 1 [facility] - DOS ON OR AFTER 20 (MEDICAID REPLACEMENT - HMO) Chelsymichael Grossman [id number] Chelsymichael Grossman 01/05/2024 1 [facility] - DOS ON OR AFTER 20 (MEDICAID REPLACEMENT - HMO) Chelsy Grossman [id number] Chelsymichael Grossman 05/15/2024 1 *SELF PAY* Tod Grossman Notes Date Note Type Note Provider Name and Address Organization Details Recorded Time 04/14/2023 text/html Pt broke her tailbone. She states it has gotten better and only had problems the first couple of days.tripped over a box backwards at work; denies numbness or tingling or loss of bowel or bladderPt wanted to bring up she was having trouble hearing in both ears. Rosmery Navarrete APN, [employer]-C Attn: Accounting,[address], [place], [address], [facility] 04/14/2023 15:36:26 05/13/2023 text/html Annual f [facility]- PCP: YUNG Zabala Concerns today- Has not had period for 2 months. Takes control pills regularly (uses a timer) and uses condoms consistently.- Had negative test at urgent care Infection risk- Prior testing for HIV? Yes - neg in 2019- Prior testing for HepC? Yes - neg in 2019- History of STIs? No- Currently having unprotected sex? Yes - uses condoms consistently with partner Plans for - Desires within next year? No Cancer screenings- Breast cancer: No known FHx.- Cervical cancer: Last screening 06/2019 -- NILM with neg hr-HPV- Colon cancer: FHx in mother, dx in 50s or 60s.- Lung cancer: Never smoker. LATRELL LANDEROS MD Attn: Accounting, [address] [place], [address], [facility] 05/13/2023 09:14:27 07/04/2023 text/html Reflux/GERDRepor te d bypatient.Symptoms Asymptomatic Severity:improving Context:non-smoker ; no drug/alcohol abuse; no drug alcohol withdrawal; not related to food/drink Associated Symptoms:no frequent coughing; no food getting stuck; no belching/burping; no nausea; not vomiting blood; no regurgitation; no shortness of breath; no chest pain; no heartburn; no difficulty swallowing; no pain when swallowing; no fatigue; no throat pain;vomiting Rosmery Navarrete APN, [employer]-C Attn: Accounting, [address] [place], [address], [facility] 07/04/2023 09:38:17 01/05/2024 text/html Reflux/GERDRepor te d bypatient.Symptoms Asymptomatic Severity:improving Context:non-smoker ; no drug/alcohol abuse; no drug alcohol withdrawal; not related to food/drink Associated Symptoms:no frequent coughing; no food getting stuck; no belching/burping; no nausea; not vomiting blood; no regurgitation; no shortness of breath; no chest pain; no heartburn; no difficulty swallowing; no pain when swallowing; no fatigue; no throat pain;vomiting pt is c/o stomach hurting almost as if constipated, vomiting periodically, duration since last . No sinus issues or sore throat. Rosmery Navarrete APN, [employer]-C Attn: [address] [place], [address], [facility] 01/05/2024 09:04:02 05/15/2024 text/html Annual well wom[facility] n- PCP: YUNG Zabala Concerns today- None Infection risk- Prior testing for HIV? Yes - neg in 2019- Prior testing for HepC? Yes - neg in 2019- History of STIs? No- Vaccines due? COVID, Tdap Plans for - On POPs Cancer screenings- Breast cancer: No known FHx.- Cervical cancer: NILM with neg hr-HPV (06/2019)- Colon cancer: FHx in mother, dx in 50s or 60s.- Lung cancer: Never smoker. LATRELL LANDEROS MD Attn: Accounting[address] [place], [address], [facility] 05/15/2024 11:34:17 OBGyn Episode No OBEpisode recorded.
--- OUTSIDE RECORDS SUMMARY | 2024-05-22 15:39 | XMS_ITS | Clinical Summary ---
Author Organization [address] lt Address [address] [place] [address] Care Team Providers Care Assistant Import Manager Name Role Phone Rosmery Zhu NP Primary Care Provider [phone] Allergies No known active allergies Medications ondansetron ODT (ZOFRAN-ODT) 4 mg disintegrating tabletIndications: Nausea and vomiting, unspecified vomiting type Take 1 tablet (4 mg total) by mouth 4 (four) times a day as needed for nausea or vomiting 30 tablet 1 5 Active omeprazole 20 mg tablet,delayed release (DR/EC) Take 1 tablet (20 mg total) by mouth daily as needed Active ondansetron ODT (ZOFRAN-ODT) 4 mg disintegrating tabletIndications: Nausea and vomiting, unspecified vomiting type Take 1 tablet (4 mg total) by mouth every 8 (eight) hours as needed for nausea or vomiting 10 tablet 4 025 Discontin ued(Reord er) Active Problems Problem Noted Date Diagnosed Date Gastroesophageal reflux disease 05/09/2024 Nausea and vomiting 05/09/2024 Family history of colon cancer in mother 025 Encounters Date Type Department Care Team Description 05/09/2024 3:30 PM LUGGAGE REPAIRER Office Visit [facility] Gastroenterology at [address] [place] [address] Toribio Carr NP Gastroesophageal reflux disease, unspecified whether esophagitis present (Primary Dx); Nausea and vomiting, unspecified vomiting type; Family history of colon cancer in mother; Family history of pancreatic cancer; Hepatic steatosis 05/09/2024 Telephone [facility] Gastroenterology at [address] [place] [address] Reny Dee MA 05/09/2024 Telephone [facility] Gastro[facility] at [address] [place] [address] Reny Dee MA Schedule EGD 04/30/2024 Telephone [facility] Gastroenterology at [address] [place] [address] Reny Dee MA from Last 3 Months Immunizations Name Administration Dates Next Due Influenza, Quadrivalent, Split, Intramuscular ,06/16/2016 Influenza, Quadrivalent, Spl it, Preservative Free, Intramuscular 01/05/2018 Social History Tobacco Use Types Packs/Day Years Used Date Smoking Tobacco: Never AUDIT-C Answer Date Recorded Q1: How often do you have a drink containing alc ohol? Never 05/09/2024 Average Number of Drinks Not on file 025 Frequency of Binge Drinking Not on file 04/12 Comments No Sex and Gender Information Value Date Recorded Sex Assigned at Not on file Legal Sex Female 7:14 PM LUGGAGE REPAIRER Gender Identity Not on file Sexual Orientation Not on file Obstetrics History Last Filed Vital Signs Vital Sign Reading Time Taken Comments Blood Pressure 106/74 05/09/2024 2:57 PM LUGGAGE REPAIRER Pulse 78 05/09/2024 2:57 PM LUGGAGE REPAIRER Temperature 37 C (98.6 F) 05/08/2023 4:16 PM LUGGAGE REPAIRER Respiratory Rate 18 05/08/2023 4:16 PM LUGGAGE REPAIRER Oxygen Saturation 99% 05/09/2024 2:57 PM LUGGAGE REPAIRER Inhaled Oxygen Concentration - - Weight 86.2 kg (190 lb) 05/09/2024 2:57 PM LUGGAGE REPAIRER Height 154.9 cm (5' 1 ) 05/09/2024 2:57 PM LUGGAGE REPAIRER Body Mass Index 35.9 05/09/2024 2:57 PM LUGGAGE REPAIRER Plan of Treatment Upcoming Encounters Date Type Department Care Team (Latest Contact Info) Description 06/06/2024 11:30 AM LUGGAGE REPAIRER Hospital Encounter [facility] [address] [place] [address] Denise Medellin MD [address] [place] [address] 06/06/2024 11:30 AM LUGGAGE REPAIRER - 06/06/2024 12:05 PM LUGGAGE REPAIRER Surgery [facility] [address] [place] [address] Denise Medellin MD [address] [place] [address] ESOPHAGOGASTRODUODENOSCOPY Scheduled Procedures Name Priority Associated Diagnoses Date/Ti me ESOPHAGOGASTRODUODENOSCOPY Gastroesophageal reflux disease, unspecified whether esophagitis present Nausea and vomiting, unspecified vomiting type 06/06/2024 11:30 AM LUGGAGE REPAIRER Health Maintenance Due Date Last Done Comments Cervical Cancer Screening 1986 Depression Screening 1986 Hepatitis C Screening 1986 DTaP/Tdap/Td Vaccine (1 - Tdap) 1997 Varicella Vaccines (1 of 2 - 13+ 2-dose series) 1999 Hepatitis B Screening 2004 Regular Well Visit/Exam 18-64 2004 Covid-19 Vaccine (3 2023-2 5 season) 2023 07/19/2020, 06/24/2020 Influenza Vaccine (#1) 2023 9, 01/05/2018, 06/16/2016 HPV Vaccines Aged Out No longer eligi ble based on patient's age to complete this topic Pneumococcal vaccine <65 Aged Out No longer eligible based on patient's age to complete this topic Insurance [facility] Care Teams Assistant Import Manager Relationship Specialty Start Date End Date Rosmery Zhu NP [address] [place] [address] PCP - General Nurse Practitioner 12/09/20
--- OUTSIDE RECORDS SUMMARY | 2024-05-22 15:39 | XMS_ITS | Clinical Summary ---
Author Organization [facility] Address [address] [place] [address] Phone Care Team Providers Care Optometry Teacher Name Role Phone Rosmery Zhu APRN, SIRISHA Primary Care Provider [phone] Alison Gracia APRN, CNP Unavailable Allergies No known active allergies Medications polyethylene glycol (MIRALAX) Powder Take 17 g by mouth daily. 17 g = 1 scoop. Dissolve in 4 -8 oz of water or other liquid. 1 Bottle 7 Active Additional Information Patient not taking.Reported on 11/16/2023 ondansetron (ZOFRAN) 4 MG Tablet Take 1-2 Tablets by mouth every 8 hours as needed for Nausea - 1st line. 10 Tablet 3 Active Additional Information Patient not taking.Reported on 11/18/2023 traMADol (ULTRAM) 50 MG TabletIndicatio ns:Dental infection Take 1-2 Tablets by mouth every 6 hours as needed for Moderate or more severe pain. 20 Tablet 3 Active Additional Information Patient not taking.Reported on 11/16/2023 ibuprofen (MOTRIN) 600 MG Tablet Take 1 Tablet by mouth every 8 hours. 30 Tablet 3 Active Additional Information Patient not taking.Reported on 11/18/2023 HYDROcodone-jasiel taminophen (NORCO) 5-325 MG TabletIndicatio ns:Fracture of coccyx, initial encounter for closed fracture (HCC) Take 1 Tablet by mouth every 6 hours as needed for Moderate or more severe pain. 10 Tablet 3 Active Additional Information Patient not taking.Reported on 11/16/2023 naproxen (NAPROSYN) 500 MG Tablet Take 1 Tablet by mouth 2 times daily as needed for Mild or more severe pain. 20 Tablet 3 Active Additional Information Patient not taking.Reported on 11/18/2023 atorvastatin (LIPITOR) 40 MG Tablet Take 40 mg by mouth daily. Active cetirizine (ZyrTEC) 10 MG Tablet Take 10 mg by mouth daily. Active norethindrone-e thinyl estradiol (ORTHO-NOVUM 1-35 TAB, NORTREL 1-35 TAB) 1-35 MG-MCG Tablet Take 1 Tablet by mouth daily. Active omeprazole (PriLOSEC) 20 MG CAPSULE DELAYED RELEASE Take 20 mg by mouth daily. Active fluticasone (FLONASE) 50 MCG/ACT SuspensionIndic ations:Environm ental allergies 1 [place] by Nasal route daily. Use in each nostril as directed. 16 g 5 4 Active Active Problems Problem Noted Date Diagnosed Date Snoring 11/18/2023 Excessive daytime sleepiness 11/18/2023 Environmental allergies 11/18/2023 Encounters Date Type Department Care Team Description 03/08/2024 12:42 AM REELING MACHINE SETUP OPERATOR - 03/08/2024 1:13 AM REELING MACHINE SETUP OPERATOR Emergency [facility] Emergency [address] [place] [phone] Tal Coffman MD Paronychia of great toe, left Discharge Disposition: Discharged to home or Selfcare 03/08/2024 Travel 02/28/2024 Telephone [facility] - [place] [address] [place] [address] Alison Gracia APRN, SIRISHA from Last 3 Months Social History Tobacco Use Types Packs/Day Years Used Date Smoking Tobacco: Never Smokeless Tobacco: Never Alcohol Use Standard Drinks/Week Comments No 0 (1 standard drink = 0.6 oz pur e alcohol) Sexually Active Control Partners Comments Not Currently Comments No Sex and Gender Information Value Date Recorded Sex Assigned at Female 03/31/2023 5:42 PM REELING MACHINE SETUP OPERATOR Legal Sex Female 12:42 AM CDT Gender Identity Female 03/31/2023 5:42 PM REELING MACHINE SETUP OPERATOR Sexual Orientation Straight 05/10/2024 12 :40 AM REELING MACHINE SETUP OPERATOR Last Filed Vital Signs Vital Sign Reading Time Taken Comments Blood Pressure 121/77 03/08/2024 12:39 AM REELING MACHINE SETUP OPERATOR Pulse 86 03/08/2024 12:39 AM REELING MACHINE SETUP OPERATOR Temperature 37 C (98.6 F) 03/08/2024 12:39 AM REELING MACHINE SETUP OPERATOR Respiratory Rate 18 03/08/2024 12:39 AM REELING MACHINE SETUP OPERATOR Oxygen Saturation 100% 03/08/2024 12:39 AM REELING MACHINE SETUP OPERATOR Inhaled Oxygen Concentration - - Weight 81.6 kg (180 lb) 03/08/2024 12:39 AM REELING MACHINE SETUP OPERATOR Height 154.9 cm (5' 1 ) 03/08/2024 12:39 AM REELING MACHINE SETUP OPERATOR Body Mass Index 34.01 03/08/2024 12:39 AM REELING MACHINE SETUP OPERATOR Plan of Treatment Health Maintenance Due Date Last Done Comments Hepatitis C Virus (HCV) Screening 1986 TdaP Immunization 1986 Hepatitis B Immunization (1 of 3 - 19+ 3-dose series) 2005 Pap Smear 2007 Cervical Cancer Screening (CCS) 2016 HPV/Cotest 2016 Influenza Immunization (#1) 12/11/202312/10, 02/18/2021, 01/05/2018, Additional history exists SARS-COV-2 Immunization ( season) 2023 03/05/2022, 02/10/2021, 07/19/2020, Additional history exists Respiratory Syncytial Virus (RSV) Immunization (Adult) (1 - 1-dose 75+ series) 2061 Meningococcal Immunization (ACWY) Aged Out No longer eligible based on patient's age to complete this topic Pneumococcal Immunization Combined Aged Out No longer eligible based on patient's age to complete this topic Rotavirus Immunization Aged Out No lo nger eligible based on patient's age to complete this topic Insurance [employer] Care Teams Optometry Teacher Relationship Specialty Start Date End Date Zhu, LISA Botello CNP [address] [facility] [address] [place] [address] PCP - General Family Medicine 05/16/18 Alison Gracia APRN, CNP [address] [address] Nurse Practitioner Advanced Practice Nurse 12/28/23
--- OUTSIDE RECORDS SUMMARY | 2024-05-22 15:40 | XMS_ITS | Referral Summary ---
Author Organization [address] Address [address] [place] [address] Care Team Providers Care Tobacco Packing Machine Operator Name Role Phone Rosmery Zhu NP Primary Care Provider [phone] Encounters Date Type Department Care Team Description 05/09/[address] [facility] Gastroenterology at [address] [place] [address] Reny Dee MA 05/09/[address] [facility] Gastroenter[facility] at [address] [place] [address] Reny Dee MA Schedule EGD 05/09/2024 3:30 PM BLENDING TANK TENDER HELPER Office Visit [facility] Medical [facility] Gastroenterology at [address] [place] [address] Toribio Carr NP Gastroesophageal reflux disease, unspecified whether esophagitis present (Primary Dx); Nausea and vomiting, unspecified vomiting type; Family history of colon cancer in mother; Family history of pancreatic cancer; Hepatic steatosis 04/30/[address] [facility] Medical [facility] Gastroenterology at [address] [place] [address] Reny Dee MA from Last 3 Months Allergies No known active allergies Medications ondansetron [...] history of colon cancer in mother 025 Immunizations Name Administration Dates Next Due Influenza, [...] on file Legal Sex Female 7:14 PM BLENDING TANK TENDER HELPER Gender Identity Not on file Sexual Orientation Not on file Last Filed Vital Signs Vital Sign Reading Time Taken Comments Blood Pressure 106/74 05/09/2024 2:57 PM BLENDING T[employer] TENDER HELPER Pulse 78 05/09/2024 2:57 PM BLENDING TANK TENDER HELPER Temperature 37 C (98.6 F) 05/08/2023 4:16 PM BLENDING TANK TENDER HELPER Respiratory Rate 18 05/08/2023 4:16 PM BLENDING TANK TENDER HELPER Oxygen Saturation 99% 05/09/2024 2:57 PM BLENDING TANK TENDER HELPER Inhaled Oxygen Concentration - - Weight 86.2 kg (190 lb) 05/09/2024 2:57 PM BLENDING TANK TENDER HELPER Height 154.9 cm (5' 1 ) 05/09/2024 2:57 PM BLENDING TANK TENDER HELPER Body Mass Index 35.9 05/09/2024 2:57 PM BLENDING TANK TENDER HELPER Plan of Treatment Upcoming Encounters Date Type Department Care Team (Latest Contact Info) Description 06/06/2024 11:30 AM BLENDING TANK TENDER HELPER Hospital Encounter [facility] [address] [place] [address] Denise Medellin MD [address] [place] [address] 06/06/2024 11:30 AM BLENDING TANK TENDER HELPER - 06/06/2024 12:05 PM BLENDING TANK TENDER HELPER Surgery [facility] [address] [place] [address] Denise Medellin MD [address] [place] [address] ESOPHAGOGASTRODUODENOSCOPY Scheduled Procedures Name Priority Associated Diagnoses Date/Ti me ESOPHAGOGASTRODUODENOSCOPY Gastroesophageal reflux disease, unspecified whether esophagitis present Nausea and vomiting, unspecified vomiting type 06/06/2024 11:30 AM BLENDING TANK TENDER HELPER Insurance [facility] Care Teams Tobacco Packing Machine Operator Relationship Specialty Start Date End Date Zhu, Rosmery Canchola NP [address] [place] [address] PCP - General Nurse Practitioner 12/09/20
== END 2024-05-22 15:58 | disposition home or self-care (01) ==
PROVIDERS: Emergency Provider Nurse Practitioner; PCP Nurse Practitioner Family
DX: R42 Dizziness and giddiness (principal); R05.9 Cough, unspecified; R11.0 Nausea; R51.9 Headache, unspecified; Z20.822 Contact with and (suspected) exposure to COVID-19
CPT/HCPCS: 87426; 87804; 99213; G0463